=== PATIENT | male | born 1985 | race Caucasian/White ===

== ENCOUNTER 2017-01-02 12:37 | Emergency (ER) | payer BC ==
[~2017-01-02] VITALS: Ht 167.6 cm; Wt 54.7 kg
[2017-01-02 12:42] VITALS: TEMP 36.7; Ht 167.6 cm; Wt 54.7 kg
[2017-01-02] MEDS ORDERED: ACETAMINOPHEN 500 MG TAB PO STA (12:59)
[2017-01-02] MEDS ORDERED: FAMO20TA11 PO (13:07)
--- NOTE | 2017-01-02 13:36 | DIAGNOSTIC IMAGING REPORT ---
LEFT SHOULDER MIN 2 VIEWS ROUTINE CLINICAL HISTORY: Left shoulder pain following fall. COMPARISON: None FINDINGS: Alignment of the left acromioclavicular and glenohumeral joints is anatomic. A 7 mm sclerotic focus within the glenoid suggests a bone island. No definite acute fracture is identified. Note is made of lucency projecting over the superior aspect of the left scapular body. IMPRESSION: 1. No dislocation. No definite acute fracture. 2. Lucency projecting over the superior aspect of the left scapular body. This is likely artifactual although fracture could appear similar. Electronically signed by: Quinten Person M.D. 01/02/2017 1:35 PM Dictated Date/Time: 01/02/2017 1:29 PM
--- NOTE | 2017-01-02 14:01 | EMERGENCY ROOM VISIT NOTE ---
ED Visit Note First contact with patient: 12:53 CHIEF COMPLAINT: Left shoulder injury one hour ago HISTORY OF PRESENT ILLNESS: Patient is a right-hand dominant 31-year-old male who presents the emergency department accompanied by friends for evaluation of left shoulder pain 1 hour. He was playing soccer when he tripped and fell, landing directly on the left shoulder. Initially he did not note significant discomfort, actually continued to play for a short time, at which point the pain increased and he had to stop. He notes pain in the top, lateral and anterior aspect of the shoulder that is worse with any attempts at movement. He denies any sensation that the shoulder dislocated or slipped out of place. He denies any cracking or popping at the time of the injury. He rates his discomfort a 5/10 presently. He had some slight tingling in the left forearm that has resolved. He denies any prior history of injuries to the shoulder. REVIEW OF SYSTEMS: Review of systems as per HPI. All other systems reviewed were negative. At least 6 systems reviewed. PMH: Electronic medical records are reviewed and summarized as above/below. See Problem List. SOCIAL HISTORY: Patient lives at home with his significant other. Nonsmoker. Is employed. PHYSICAL EXAM: Vital Signs: Reviewed nurse's notes. CONSTITUTIONAL: Patient is a well-appearing 31-year-old white male who is awake and alert and in no acute distress. MUSCULOSKELETAL: Examination of the left shoulder does not demonstrate any obvious deformity. There is no discomfort over the acromioclavicular joint, has more pain over the proximal biceps tendon, laterally over the rotator cuff insertion, and posteriorly. There is no pain posteriorly over the scapula, or in the trapezius distribution. Passive internal and external rotation are full. Elbow and wrist are normal to inspection and palpation and range of motion there is full. The left upper extremity is neurovascularly intact. EMERGENCY DEPARTMENT COURSE: Patient was medicated with acetaminophen for discomfort. Ice pack was applied. X-rays of the left shoulder were obtained and did not note any acute bony abnormality. X-ray findings were reviewed with the patient. The patient does not have any pain over the scapular spine, therefore findings on radiograph are suspected to be artifactual and less likely related to a fracture, particularly given the mechanism of injury. Differential diagnoses entertained included clavicle fracture, acromioclavicular separation, shoulder subluxation versus dislocation, proximal humerus fracture, soft tissue disruption including rotator cuff or labral injury , among others. Supportive care measures were discussed. Patient was fitted with an arm sling. He was advised to rest the shoulder, and is encouraged to follow-up with orthopedics if his symptoms are not improving for further care and evaluation. He expressed understanding of this and was agreeable. He rated his discomfort a 4/10 at discharge. LEFT SHOULDER MIN 2 VIEWS ROUTINE CLINICAL HISTORY: Left shoulder pain following fall. COMPARISON: None FINDINGS: Alignment of the left acromioclavicular and glenohumeral joints is anatomic. A 7 mm sclerotic focus within the glenoid suggests a bone island. No definite acute fracture is identified. Note is made of lucency projecting over the superior aspect of the left scapular body. IMPRESSION: 1. No dislocation. No definite acute fracture. 2. Lucency projecting over the superior aspect of the left scapular body. This is likely artifactual although fracture could appear similar. Problem List Medical Problems: (1) GERD (gastroesophageal reflux disease) Status: Chronic Current/Historical Medications Scheduled Famotidine (Pepcid), 20 MG PO AC Allergies Coded Allergies: No Known Allergies (Unverified , 01/02/17) Vital Signs Date Time Temp Pulse Resp B/P (MAP) Pulse Ox O2 Delivery O2 Flow Rate FiO2 01/02/17 14:32 90 18 112/75 99 01/02/17 12:42 36.7 102 18 117/80 98 Room Air Medications Administered Medications (Trade) Dose Ordered Sig/Dawit Route Start Time Stop Time Status Last Admin Dose Admin Acetaminophen (Tylenol Tab) 1,000 mg NOW STAT PO 01/02/17 12:59 01/02/17 13:01 DC 01/02/17 13:26 1,000 MG Departure Information Impression Primary Impression: Injury of left shoulder Referrals No Doctor, Assigned (PCP) Patient Instructions My [facility] Additional Instructions Ibuprofen(Motrin, Advil) may be used for fever or pain. Use 600mg every six hours as needed. Take with food. Avoid using more than 2400mg in a 24 hour period. Do not use 2400mg per day for more than three consecutive days without physician direction. Prolonged inappropriate use can lead to stomach upset or ulcers. This medication can be taken if you need to drive, work, or perform activities which may be dangerous when taking narcotic pain medication. (AND/OR) Acetaminophen(Tylenol) may be used for fever or pain. Use 1000mg every six hours as needed. Avoid using more than 3000mg in a 24 hour period. This medication can be taken if you need to drive, work, or perform activities which may be dangerous when taking narcotic pain medication. Ice compresses for 20 minutes at a time four times daily for 2-3 days. Use the sling as instructed. Remove your arm from the sling 4-6 times a day and move all the joints around to keep them loose. Rest and elevate your injury. Continue current medications. Return to the ER immediately for any numbness, tingling, severe pain, extreme swelling in the extremity or as needed. Follow up with orthopedics for further care and management if your symptoms are not improving.
[2017-01-02 14:32] VITALS: BP 112/75; PULSE 90; O2SAT 99
== END 2017-01-02 14:34 | disposition home or self-care (01) ==
LOC: C.EDB 12:40 → C.EDD 14:34
DX: S49.92XA Unspecified injury of left shoulder and upper arm, initial encounter (principal); W18.39XA Other fall on same level, initial encounter; W22.8XXA Striking against or struck by other objects, initial encounter; Y93.66 Activity, soccer; Y99.8 Other external cause status; K21.9 Gastro-esophageal reflux disease without esophagitis; Z79.899 Other long term (current) drug therapy